=== PATIENT | male | born 1950 | race American Indian/Alaskan Native ===

== ENCOUNTER 2018-04-24 11:03 | Emergency (ER) | payer MEDICARE ==
[2018-04-24] MEDS ORDERED: CATAPRES PO ONE (12:54)
--- NOTE | 2018-04-24 13:05 | Emergency Department Report ---
HPI - General Chief Complaint: Extremity Problem,Nontraumatic Time Seen by Provider: 04/24/18 12:42 - HPI HPI: 68-year-old -[place] female presents to the emergency department with complaint of a one-week history of right knee pain and swelling. She denies any trauma or specific event where she may have injured the knee. She has some pain with certain movements of the knee. She is able to ambulate but says that she "hobbles." She denies any skin color change. She denies any recent travel , recent surgery or immobility prior to the symptoms. She has a past history of hypertension and does present with very elevated blood pressure. She takes some dose of amlodipine but admits that she only takes it intermittently and she says it causes lower extremity swelling. Her primary care physician, Dr. Calderon, isn't [facility] and she has not seen them regarding her symptoms. ED Past Medical Hx - Past Medical History Hx Hypertension: Yes - Surgical History Past Surgical History?: No - Social History Smoking Status: Never Smoker Substance Use Type: None - Medications Home Medications: Home Medications Medication Instructions Recorded Confirmed Last Taken Type hydrALAZINE [Apresoline TAB] 25 mg PO Q8HR #60 tab 04/24/18 Unknown Rx ED Review of Systems ROS: Stated complaint: SWOLLEN KNEE Other details as noted in HPI Comment: All other systems reviewed and negative Constitutional: denies: chills, fever Eyes: denies: eye pain, eye discharge, vision change ENT: denies: ear pain, throat pain Respiratory: denies: cough, shortness of breath, wheezing Cardiovascular: denies: chest pain, palpitations Gastrointestinal: denies: abdominal pain, nausea, diarrhea Genitourinary: denies: urgency, dysuria Musculoskeletal: joint swelling, arthralgia Skin: denies: rash, lesions Neurological: denies: headache, weakness Physical Exam - Physical Exam Vital Signs: Vital Signs 04/24/18 11:54 Temperature 98.7 F Pulse Rate 67 Respiratory 16 Rate Blood Pressure 212/85 O2 Sat by Pulse 98 Oximetry Physical Exam: GENERAL: The patient is well-developed well-nourished. HEENT: Normocephalic. Atraumatic. Patient has moist mucous membranes. EYES: Extraocular motions are intact. NECK: Supple. Trachea is midline. CHEST/LUNGS: Clear to auscultation. There is no respiratory distress noted. HEART/CARDIOVASCULAR: Regular. There is no tachycardia. There is no gallop rub or murmur. ABDOMEN: Abdomen is soft, nontender. Patient has normal bowel sounds. SKIN: Skin is warm and dry. The patient has obese habitus but is difficult to appreciate any obvious swelling of the right knee in comparison with the left. There is no skin color changes. NEURO: The patient is awake, alert, and oriented. The patient is cooperative. The patient has no focal neurologic deficits. The patient has normal speech. MUSCULOSKELETAL: Mild tenderness to palpation of the affected right knee. No obvious deformity. Negative anterior and posterior drawer test of the right knee. No laxity with valgus or varus stress of the right knee. There is no evidence of acute injury. ED Course Vital Signs 04/24/18 11:54 Temperature 98.7 F Pulse Rate 67 Respiratory 16 Rate Blood Pressure 212/85 O2 Sat by Pulse 98 Oximetry ED Medical Decision Making - EKG Data -: EKG Interpreted by Me EKG shows normal: sinus rhythm, axis (left axis deviation), intervals ( prolonged NH interval), QRS complexes (LVH), ST-T waves Rate: bradycardia (58 bpm) - EKG Data When compared to previous EKG there are: previous EKG unavailable Interpretation: other (sinus bradycardia, prolonged NH interval, LVH) - Radiology Data Radiology results: report reviewed, image reviewed interpreted by me: X-ray of the right knee does not show any fracture, dislocation or any other acute process. Right lower extremity venous Doppler is negative for DVT. - Medical Decision Making This patient presents with complaint of a one-week history of some right knee pain and swelling. She has no complaints regarding her blood pressure but does present with quite elevated blood pressure and medication noncompliance. She was given a 0.2 mg dose of Catapres and upon reevaluation her blood pressures come down to a more reasonable level. Since the patient appears to been having some side effects secondary to the amlodipine that is caused her to have noncompliance, she has been instructed to stop the amlodipine altogether and has been started on some hydralazine to be taken 3 times daily. However she understands the importance of following up with her primary care physician regarding blood pressure management to see if she should stay on the hydralazine or try a different medication. We discussed staying away from foods that are high in salt caffeinated products and keeping a blood pressure log. Regarding her right knee, the patient had a negative right lower extremity venous Doppler ultrasound for DVT. X-ray did not show any significant joint effusion or etiology of her discomfort. She has been given a knee immobilizer. She has been given a referral for orthopedists. She will return to the ER with any worsening of her symptoms or any acute distress. - Differential Diagnosis osteoarthritis, DVT, cellulitis, tendinitis, bursitis Critical Care Time: No Critical care attestation.: If time is entered above; I have spent that time in minutes in the direct care of this critically ill patient, excluding procedure time. ED Disposition Clinical Impression: Swelling of right knee joint, Noncompliance with medication regimen Right knee pain Qualifiers: Chronicity: unspecified Qualified Code(s): M25.561 - Pain in right knee Hypertension Qualifiers: Hypertension type: essential hypertension Qualified Code(s): I10 - Essential ( primary) hypertension Disposition: TO HOME OR SELFCARE Is pt being admited?: No Condition: Stable Instructions: Hypertension (ED), Arthralgia (ED) Additional Instructions: Please follow-up with your primary care physician regarding your hypertension and the need for changes to her blood pressure medication. I'm starting you on a different blood pressure medication called hydralazine. Try and stay away from foods that are high in salt and caffeinated products. Keep a blood pressure log. I'm giving you a referral for a local orthopedist, Dr. Howell, to follow up regarding your right knee pain and swelling. Return to the emergency Department with any worsening of your symptoms or any acute distress. Prescriptions: hydrALAZINE [Apresoline TAB] 25 mg PO Q8HR #60 tab Referrals: PRIMARY MD BREANNA [Primary Care Provider] - 2-3 Days JOAN HOWELL MD [Staff Physician] - 2-3 Days Time of Disposition: 14:18
--- NOTE | 2018-04-24 13:52 | XRay Report ---
RIGHT KNEE, 3 views: History: Right knee pain. The bony architecture is intact without evidence of fracture or dislocation. No significant soft tissue abnormality is seen. IMPRESSION: Unremarkable right knee.
[2018-04-24 14:14] VITALS: BP 170/71
--- NOTE | 2018-04-29 14:16 | Vascular Lab Report ---
Right Lower Extremity Venous Duplex Study: Reason for Exam: Pain and swelling of the right lower extremity. Comments on the Right: All veins visualized are freely compressible without evidence of internal echogenicity. Flow is spontaneous and phasic throughout. No evidence of acute or chronic thrombus is seen in any of the vessels visualized. A soft tissue change in the right knee area is consistent with a Shelton's cyst. Comments on the Left: A limited duplex study was done of the proximal veins of the left lower extremity. All veins visualized are freely compressible without evidence of internal echogenicity. Flow is spontaneous and phasic throughout. No evidence of acute or chronic thrombus is seen in any of the vessels visualized. Impression: No evidence of acute or chronic deep venous thrombosis in the right lower extremity. A soft tissue change in the right knee area is consistent with a Shelton's cyst.
== END 2018-04-24 15:17 | disposition home or self-care (01) ==
LOC: ED 11:03
DX: M25.561 Pain in right knee (principal); M79.89 Other specified soft tissue disorders; I10 Essential (primary) hypertension; Z91.14 Patient's other noncompliance with medication regimen
CPT/HCPCS: 93005; 93010; 99284